=== PATIENT | male | born 2000 | race Two or more races ===

== ENCOUNTER 2024-11-09 07:04 | Day surgery (SDC) | payer OTHER ==
[~2024-11-09] VITALS: Ht 175.3 cm; Wt 82.8 kg
[2024-11-09] MEDS ORDERED: LIDOCAINE 2% 100 MG/5 ML SDV (FOR ANES.) As Ordered ONE (07:31)
[2024-11-09 08:40] VITALS: TEMP 97.5
[2024-11-09 09:00] VITALS: BP 145/79; O2SAT 99
== END 2024-11-09 09:16 | disposition home or self-care (01) ==
LOC: M OPP 07:04
PROVIDERS: ATTEND Surgery
DX: K63.5 Polyp of colon (principal); R10.30 Lower abdominal pain, unspecified; R19.4 Change in bowel habit; K25.9 Gastric ulcer, unspecified as acute or chronic, without hemorrhage or perforation; K30 Functional dyspepsia; R14.0 Abdominal distension (gaseous); K29.50 Unspecified chronic gastritis without bleeding
CPT/HCPCS: 43239; 45380; 88305; J3010